=== PATIENT | female | born 1970 | race African-American/Black ===

== ENCOUNTER 2020-07-23 08:50 | Emergency (ER) | payer OTHER ==
[~2020-07-23] VITALS: Ht 152.4 cm; Wt 62.1 kg
[2020-07-23 09:25] LABS: Urine Bacteria NONE SEEN /hpf (None Seen); Urine Blood Negative /uL (Negative); Urine Specific Gravity 1.004 (1.001-1.035); Urine WBC <1 /hpf (0 - 5)
[2020-07-23 10:06] LABS: Basophils # (auto) 0 10 ^3/uL (0-0.2); Basophils % (auto) 0.7 % (0.0-2.0); Eosinophils # (auto) 0 10 ^3/uL (0-0.8); Eosinophils % (auto) 0.9 % (0.0-7.0); Hematocrit 41.5 % (36.0-46.0); Hemoglobin 13.8 g/dL (12.2-16.2); Lymphocytes # (auto) 1.5 10 ^3/uL (0.4-5.4); Lymphocytes % (auto) 40.1 % (10.0-50.0); Mean Corpuscular Hemoglobin 30.3 pg (28.0-32.0); Mean Corpuscular Hgb Conc. 33.3 g/dL (32.0-36.0); Monocytes # (auto) 0.3 10 ^3/uL (0-1.3); Monocytes % (auto) 6.8 % (0.0-12.0); Neutrophils # (auto) 1.9 10 ^3/uL (1.6-8.6); Neutrophils % (auto) 51.5 % (37.0-80.0); Nucleated Red Blood Cells % 0.1 %; Platelet Count (auto) 263 10^3/uL (140-450); Red Blood Cells 4.56 10^6/uL (4.0-5.20); Red Cell Distribution Width 12.9 % (11.8-14.3); White Blood Cell 3.7 10^3/uL (4.4-10.8)
[2020-07-23 10:09] LABS: Calcium 9.1 mg/dL (8.5-10.1); Potassium 4.1 mmol/L (3.5-5.1)
[2020-07-23 10:14] LABS: BUN/Creatinine Ratio 13.4
[2020-07-23 11:00] VITALS: BP 134/83
== END 2020-07-23 12:05 | disposition home or self-care (01) ==
LOC: ER 08:50
DX: K64.9 Unspecified hemorrhoids (principal)
CPT/HCPCS: 36415; 74176; 80048; 81001; 85025

== ENCOUNTER 2020-08-09 18:34 | Emergency (ER) | payer OTHER ==
[~2020-08-09] VITALS: Ht 152.4 cm; Wt 62.1 kg
[2020-08-09] MEDS ORDERED: LIDOCAINE 1% HCL (LOCAL ANESTH.) INJ 20ML MDV ONE (18:55)
[2020-08-09] MEDS ORDERED: BACITRACIN TOP OINT 1 UD PKG TOP ONE (19:00)
[2020-08-09] MEDS ORDERED: TETANUS-DIPTH-ACEL PERTUSSIS 0.5ML SYR Tdap IM ONE (19:15)
[2020-08-09 19:22] VITALS: BP 140/85
[2020-08-09] MEDS ORDERED: LIDOCAINE 1% HCL (LOCAL ANESTH.) INJ 20ML MDV ID ONE (19:30)
== END 2020-08-09 19:36 | disposition home or self-care (01) ==
LOC: ER 18:34
DX: S61.012A Laceration without foreign body of left thumb without damage to nail, initial encounter (principal); X58.XXXA Exposure to other specified factors, initial encounter; Y93.89 Activity, other specified; Y92.89 Other specified places as the place of occurrence of the external cause; Y99.8 Other external cause status
CPT/HCPCS: 90471; 90715; 99283; J2001

== ENCOUNTER 2022-09-17 06:02 | Emergency (ER) | payer OTHER ==
[~2022-09-17] VITALS: Ht 152.4 cm; Wt 63.6 kg
[2022-09-17] MEDS ORDERED: IBUP800T27 PO (07:27)
[2022-09-17] MEDS ORDERED: ACYC-166 PO (07:27)
[2022-09-17] MEDS ORDERED: TRIA0.02 TOP (07:27)
== END 2022-09-17 07:44 | disposition home or self-care (01) ==
LOC: ER 06:02
DX: B02.9 Zoster without complications (principal); E11.9 Type 2 diabetes mellitus without complications; Z79.1 Long term (current) use of non-steroidal anti-inflammatories (NSAID); Z79.899 Other long term (current) drug therapy; Z88.8 Allergy status to other drugs, medicaments and biological substances

== ENCOUNTER 2022-11-01 05:47 | Emergency (ER) | payer OTHER ==
[~2022-11-01] VITALS: Ht 152.4 cm; Wt 62.5 kg
[~2022-11-01 05:47] MED LIST: ACYC-166 PO; IBUP800T27 PO; TRIA0.02 TOP
[2022-11-01 07:24] VITALS: BP 145/88
[2022-11-01] MEDS ORDERED: LORA-483 GT (08:45)
[2022-11-01] MEDS ORDERED: BENZ100C19 PO (08:45)
[2022-11-01] MEDS ORDERED: IBUP800T26 PO (08:45)
== END 2022-11-01 09:02 | disposition home or self-care (01) ==
LOC: ER 05:47
DX: U07.1 COVID-19 (principal); E11.9 Type 2 diabetes mellitus without complications; Z88.8 Allergy status to other drugs, medicaments and biological substances
CPT/HCPCS: 36415; 87426; 87804

== ENCOUNTER 2024-02-01 09:26 | Emergency (ER) | payer OTHER ==
[~2024-02-01] VITALS: Ht 152.4 cm; Wt 61.4 kg
[~2024-02-01 09:26] MED LIST changes: -ACYC-166 PO; +ACYC1TAB3 PO; +AZIT-185 PO; +BENZ100C19 PO; +BENZ100C97 PO; +IBUP-1455 PO; +IBUP-1456 PO; -IBUP800T27 PO; +LORA-483 GT
[2024-02-01 11:42] VITALS: BP 123/86; PULSE 98; RESP 18; TEMP 98.2; O2SAT 98
[2024-02-01] MEDS ORDERED: AUG875T PO (11:53)
[2024-02-01] MEDS ORDERED: LIDO2SOL26 MT (11:53)
[2024-02-01] MEDS ORDERED: BENZ100C97 PO (11:53)
[2024-02-01] MEDS ORDERED: NAPR-957 PO (11:53)
== END 2024-02-01 12:04 | disposition home or self-care (01) ==
LOC: ER 09:26
DX: J06.9 Acute upper respiratory infection, unspecified (principal); E11.9 Type 2 diabetes mellitus without complications; Z88.6 Allergy status to analgesic agent
CPT/HCPCS: 99283; J7030

== ENCOUNTER 2024-06-02 09:45 | Emergency (ER) | payer OTHER ==
[~2024-06-02] VITALS: Ht 152.4 cm; Wt 59.6 kg
[~2024-06-02 09:45] MED LIST changes: +AUG875T PO; +LIDO2SOL26 MT; +NAPR-957 PO
[2024-06-02 11:16] VITALS: BP 127/83; PULSE 98; RESP 16; TEMP 97.2; O2SAT 96
[2024-06-02] MEDS: FLUORESCEIN SOD OPTH TEST STRIP OP ONE (11:37)
[2024-06-02] MEDS: TETRACAINE HCL 0.5% OPTH(EYE) SOLN 4ML LEFTEYE ONE (11:37)
[2024-06-02] MEDS ORDERED: TOB03OS OP (12:44)
== END 2024-06-02 13:07 | disposition home or self-care (01) ==
LOC: ER 09:45
DX: S05.01XA Injury of conjunctiva and corneal abrasion without foreign body, right eye, initial encounter (principal); E11.9 Type 2 diabetes mellitus without complications; Z88.8 Allergy status to other drugs, medicaments and biological substances; Z79.899 Other long term (current) drug therapy; W22.8XXA Striking against or struck by other objects, initial encounter; Y93.89 Activity, other specified; Y92.89 Other specified places as the place of occurrence of the external cause; Y99.8 Other external cause status
CPT/HCPCS: 70450

== ENCOUNTER 2024-09-06 10:37 | Emergency (ER) | payer OTHER ==
[~2024-09-06] VITALS: Ht 152.4 cm; Wt 59.0 kg
[~2024-09-06 10:37] MED LIST changes: +TOB03OS OP
--- NOTE | 2024-09-06 10:53 | ED.PDOC ---
Musculoskeletal HPI Comments HPI: Poor Historian. 53-year-old female presents to emergency department for evaluation of left thumb locking. Symptoms duration is since February of this year. She was seen by her PCP who did x-rays and patient states it was unremarkable. Patient states that the she has a left thumb pain and the distal joint locks up sometimes. Denies any other acute symptoms. Denies any motor or neuro deficit or numbness or tingling sensation. Denies any muscle weakness. Patient also states she has been having some nonspecific runny nose the last two months. Vitals: blood pressure of 141/90, pulse rate of 106, SpO2 of 96%RA, and a respiratory rate of 17 PMHx: chronic back pain, preDM PSHx: right breast lumpectomy, 4x C-sections REVIEW OF SYSTEMS: CONSTITUTIONAL: Denies acute: fever, diaphoresis, chills, generalized weakness. HEAD: Denies acute: headache, photophobia Eyes: Denies acute: Double vision, vision loss, eye pain, eye discharge. EARS: Denies acute: tinnitus, hearing loss, ear discharge, ear pain, THROAT: Denies acute: sore throat, swelling, difficulty swallowing , pain with swallowing, change in voice. NECK: Denies acute: neck pain, neck swelling, stiff neck. HEART: Denies acute : chest pain, palpitations, LUNGS: Denies acute: SOB, wheezing, cough, hemoptysis ABDOMEN: Denies acute: abdominal pain, Nausea, Vomiting, diarrhea, melena , hematemesis, hematochezia SKIN: Denies acute: rash, redness, lesions, itchiness. EXTREMITIES: Denies acute: calf pain, numbness, tingling, weakness, Denies acute: Low back pain. Neuro: Denies acute: focal neurological deficit, motor or sensory focal neurological deficit, tremors, seizure like activity, confusion, dizziness, change in mental status, loss of bowel or bladder function, cauda equina like symptoms. : Denies acute: dysuria, hematuria, flank pain, increase in urinary frequency. PSYCH: Denies acute: hallucination, suicidal ideation, homicidal ideation. FEMALE: Denies acute: abnormal vaginal bleeding, foul odor, unusual discharge. PHYSICAL EXAM: General: no acute distress, awake and alert. Head: normocephalic, atraumatic. Neck: supple, trachea is midline, no swelling. Throat: Normal phonation. Eyes:, no erythema, no purulent discharge, no proptosis, no icterus. Heart: regular rate, regular rhythm, no significant murmur appreciated. Lungs: no apparent respiratory distress, Able to speak in full sentences. No wheezing, no rhonchi, no crackles. No stridors Clear to auscultation bilaterally. Abdomen: non tender to palpation, non distended, soft, no guarding, no rebound, + bowel sounds. Neuro: Awake, Alert, oriented to name, self, situation, follows commands GCS=15. Speech is normal. Skin: no petechia, no purpura, no cyanosis, non-pale, not jaundice. Lower extremities: --no - Pitting edema no deformity, no focal swelling, no calf TTP. Makes eye contact. moves all four extremities. Evaluation of the affected left hand. Patient is neurovascularly intact. Radial pulses palpable. Motor and sensory are present. Left thumb has a trigger finger distal joint however patient is still able to move it. No swelling or erythema. Face: no apparent facial droop. Ambulating in the ED independently. Time Seen by MD: 10:50 Primary Care Provider: KATHARINA Reviewed Notes: Nurses Notes, Medications, Allergies Allergies: Coded Allergies: Metronidazole (Verified Allergy, Unknown, 07/23/20) Home Meds Active Scripts Tobramycin Sulfate (Tobrex) [address], 2 DROP OP QID, #5 DROP Prov:JOSE IRENE 06/02/24 Lidocaine HCl (Mouth-Throat) (Lidocaine HCl Viscous) 2 % [place], 2 % MT TID for 10 Days, #1 BOTTLE 0 Refills Prov:AMOS TINEO NP 02/01/24 Naproxen (Naproxen) 375 Mg Tab, 1 TAB PO BIDPC for 10 Days, #20 TAB 0 Refills Prov:AMOS TINEO NP 02/01/24 Benzonatate (Benzonatate) 100 Mg Cap, 100 MG PO TIDPRN PRN for 10 Days, #30 CAP 0 Refills Prov:AMOS TINEO NP 02/01/24 Amoxicillin & Pot Clavulanate (AUGMENTIN TABLET) 875 Mg Tb, 875 MG PO BID for 5 Days, #10 TAB 0 Refills Prov:AMOS TINEO NP 02/01/24 Benzonatate (Benzonatate) 100 Mg Cap, 100 MG PO TID for 10 Days, #30 CAP 0 Refills Prov:AMOS TINEO [employer] CONTAINER INSPECTOR 11/07/23 Azithromycin (ZITHROMAX TABLET) 250 Mg Tb, 250 MG PO DAILY for 5 Days, #6 TAB 0 Refills Take 2 tablets on the first day then 1 tablet daily Prov:AMOS TINEO [employer] CONTAINER INSPECTOR 11/07/23 Ibuprofen Micronized (Ibuprofen) 800 Mg Tab, 800 MG PO TIDP PRN, #30 TAB Prov:MARISOL HOLDER PAC 11/01/22 Benzonatate (Tessalon Perles) 100 Mg Cap, 1 CAP PO TID, #21 CAP Prov:GLORYMARISOL JIMENEZ PAC 11/01/22 Loratadine (CLARITIN TABLET) 10 Mg Tb, 10 MG GT DAILY for 15 Days, #15 TAB Prov:MARISOL HOLDER PAC 11/01/22 Triamcinolone Acetonide (Triamcinolone Acetonide) 0.025 % Cre, 1 APPLIC TOP BID, #30 GRAMS Prov:JOSE IRENE 09/17/22 Ibuprofen (Ibuprofen) 800 Mg Tab, 1 TAB PO TID, #30 TAB Prov:JOSE IRENE 09/17/22 Acyclovir (Acyclovir) 800 Mg Tab, 800 MG PO 5XD, #35 TAB Prov:JOSE IRENE 09/17/22 Information Source: Patient Was a procedure done? Was a procedure done?: No Differential Diagnosis EXT Differential Diagnosis: Sprain, Dislocation, Gout, Contusion, Strain, Septic, Neurovascular injury, Bursitis X-Ray, Labs, Meds, VS Vital Signs Date Time Temp Pulse Resp B/P (MAP) Pulse Ox O2 Delivery O2 Flow Rate FiO2 09/06/24 14:08 90 17 141/90 (107) 96 09/06/24 10:50 96.8 90 17 141/90 (107) 96 Lab Test 09/06/24 12:20 Range/Units Influenza Type A Antigen Negative Negative Influenza Type B Antigen Negative Negative SARS-CoV-2 Antigen (Rapid) Negative NEGATIVE Time of 1ST Reevaluation: 11:20 Reevaluation 1ST: Unchanged Patient Education/Counseling: Diagnosis, Treatment Family Education/Counseling: No Family Present Comments Patient presented with the above HPI.---trigger finger evaluate--- was initiated. patient was found with the above mentioned diagnosis. Patient having runny nose for few months. Swabs were obtained which were all negative. Patient ED course and VS have been stabilized. Patient has been reassessed in the ED and remained in a stable condition. Pertinent incidental findings were discussed with the patient and/or family. Patient/family voices understanding and is agreeable with plan. Patient has been observed in the ED adequate length of time to insure improvement/stability. Departure 1 Departure Time of Disposition: 13:28 Impression: Primary Impression: Trigger finger of left thumb Additional Impression: Runny nose Disposition: HOME / SELF CARE / HOMELESS Condition: Stable Additional Instructions: Additional discharge instructions: You MUST follow-up with your primary care/family doctor in 1 to 2 days. If you are unable to see your primary care/family doctor, please return to our emergency room for re-assessment and re-evaluation in 1 to 2 days. Return to the emergency room here in our facility or to the nearest ER [facility] if your symptoms change or worsen. CONSULTATIONS: you MUST Follow-up for consultation as soon as possible with: -hand surgeon in 1-2 days. Please call for appointment. You MUST call the consultants office yourself to make an appointment. You may need to arrange that through your insurance and/or your primary/family doctor. If you are unable to see the ergonomics consultant in 1 to 2 days, you must return to our emergency room (or any other ER of your choice) for re-assessment and re- evaluation. Adequate fluid hydration. Discharged With: Self Critical Care Note Critical Care Time?: No I personally scribed for DOMONIQUE DENNISON DO ([email or web address]) on 09/06/24 at 10:53. Electronically submitted by Freddie Funes ([email or web address]). I personally scribed for DOMONIQUE DENNISON DO ([email or web address]) on 09/06/24 at 10:56. Electronically submitted by Freddie Funes ([email or web address]). DOMONIQUE DENNISON DO Sep 06, 2024 10:53
[2024-09-06 12:54] LABS: Rapid Influenza A Negative (Negative); Rapid Influenza B Negative (Negative)
[2024-09-06 12:55] LABS: COVID19 ANTIGEN SOFIA FIA NEGATIVE (NEGATIVE)
[2024-09-06 14:08] VITALS: BP 141/90; PULSE 90; RESP 17; O2SAT 96
== END 2024-09-06 16:50 | disposition home or self-care (01) ==
LOC: ER 10:37
DX: M65.312 Trigger thumb, left thumb (principal); R09.89 Other specified symptoms and signs involving the circulatory and respiratory systems; Z98.890 Other specified postprocedural states; Z79.1 Long term (current) use of non-steroidal anti-inflammatories (NSAID); Z79.899 Other long term (current) drug therapy; Z88.8 Allergy status to other drugs, medicaments and biological substances; Z20.822 Contact with and (suspected) exposure to COVID-19
CPT/HCPCS: 36415; 87426; 87804